=== PATIENT | male | born 1965 | race Caucasian/White ===

== ENCOUNTER → 2016-11-09 | Outpatient (CLI) | payer BC | END | disposition home or self-care (01) | LOC: LABWHC1 10:39 | PROVIDERS: ATTEND Internal Medicine Endocrinology, Diabetes & Metabolism | DX: E04.2 Nontoxic multinodular goiter (principal) | CPT/HCPCS: 36415; 84439; 84443 ==

== ENCOUNTER → 2016-12-06 | Outpatient (CLI) | payer BC ==
[2016-12-06 09:01] LABS: Blood Urea Nitrogen 16 mg/dL (9-20); Non-African American GFR(MDRD) >60 (>60 ml/min/1.73 sqM)
== END | disposition home or self-care (01) ==
LOC: LABWHC1 07:12
PROVIDERS: ATTEND Otolaryngology Plastic Surgery within the Head & Neck
DX: Z01.812 Encounter for preprocedural laboratory examination (principal)
CPT/HCPCS: 36415; 82565; 84520

== ENCOUNTER → 2016-12-07 | Outpatient (CLI) | payer BC ==
--- NOTE | 2016-12-07 07:56 | CT ---
EXAMINATION TYPE: CT soft tissue neck wo con DATE OF EXAM: 12/07/2016 COMPARISON: NONE HISTORY: Nontoxic multinodular goiter CT DLP: 423.[address] of the neck was performed from the skull base through the lung apices. The lack of cont rast limits evaluation. AIRWAY: The supraglottic, glottic, and subglottic portions of the airway appear patent and free of mass. SALIVARY GLANDS: The submandibular and parotid glands are free of mass or inflammatory process. THYROID GLAND: There is nodular enlargement of the right thyroid lobe which measures 5.7 cm in cranio caudal dimension by 3.3 cm. Multiple hypoattenuating nodules are seen the largest of which is noted w ithin the upper pole and measures approximately 2.8 cm. There is mild mass effect upon the trachea wi th minimal deviation from right to left. The left thyroid lobe appears to be mildly enlarged and elian ures 4.9 x 1.7 cm. No distinct nodule is seen with certainty. LYMPH NODES: No adenopathy seen greater than 1cm. LUNG APICES: No nodule or mass is seen. OTHER: Vascular structures are patent. No significant degenerative change of the cervical spine. N o abscess seen. Mucous retention cyst within the maxillary sinuses. IMPRESSION: 1. Thyroidomegaly right lobe greater than left with multiple right-sided hypoattenuating nodules iden tified.
== END | disposition home or self-care (01) ==
LOC: RADCTMAIN 07:27
PROVIDERS: ATTEND Otolaryngology Plastic Surgery within the Head & Neck
DX: E04.2 Nontoxic multinodular goiter (principal)
CPT/HCPCS: 70490

== ENCOUNTER → 2017-05-03 | Outpatient (CLI) | payer BC ==
[2017-05-03 08:50] LABS: T4, Free (Free Thyroxine) 0.93 ng/dL (0.78-2.19)
== END | disposition home or self-care (01) ==
LOC: LABWHC1 07:18
PROVIDERS: ATTEND Internal Medicine Endocrinology, Diabetes & Metabolism
DX: E04.2 Nontoxic multinodular goiter (principal); E04.1 Nontoxic single thyroid nodule
CPT/HCPCS: 36415; 84439; 84443

== ENCOUNTER → 2017-06-23 | Outpatient (CLI) | payer BC ==
[2017-06-23 08:43] LABS: T4, Free (Free Thyroxine) 1.12 ng/dL (0.78-2.19)
== END | disposition home or self-care (01) ==
LOC: LABWHC1 07:06
PROVIDERS: ATTEND Internal Medicine Endocrinology, Diabetes & Metabolism
DX: E04.2 Nontoxic multinodular goiter (principal)
CPT/HCPCS: 36415; 84439; 84443

== ENCOUNTER → 2018-03-26 | Outpatient (CLI) | payer BC ==
--- NOTE | 2018-03-26 08:59 | US ---
EXAMINATION TYPE: US thyroid st tissue head/neck DATE OF EXAM: 03/26/2018 COMPARISON: 02/19/2016 thyroid ultrasound CLINICAL HISTORY: E04.2 nontoxic multinodular goiter. follow up exam, right thyroidectomy GLAND SIZE: Right Lobe: Surgically absent cm Left Lobe: 5.5 x 2.0 x 2.3 cm Overall Parenchyma: heterogeneous Isthmus Thickness: 0.5 cm NODULES RIGHT: # of nodules measured on right: surgically absent LEFT: # of nodules measured on left: 1 1. 1.6 X 1.3 x 1.6 cm complex solid nodule at the mid pole with well-defined margins. This nodule is wider than tall and shows intranodular vascularity. Prior size: 1.4 x 1.0 x 1.4 cm ISTHMUS: # of nodules measured in the isthmus: 0 Bilateral neck scanned, no evidence of lymphadenopathy. IMPRESSION: Minimal interval growth of the complex left thyroid nodule in comparison to exam of 2016. Continued s urveillance is advised. If continued interval growth is seen fine-needle aspiration would be recommen ded. Surgical absence of the right thyroid gland.
[2018-03-26 09:30] LABS: T4, Free (Free Thyroxine) 0.93 ng/dL (0.78-2.19)
== END | disposition home or self-care (01) ==
LOC: RADUSWWP 07:58
PROVIDERS: ATTEND Internal Medicine Endocrinology, Diabetes & Metabolism
DX: E04.1 Nontoxic single thyroid nodule (principal); E89.0 Postprocedural hypothyroidism
CPT/HCPCS: 76536; 84439; 84443

== ENCOUNTER 2018-08-31 22:36 | Inpatient (IN) | payer BC ==
--- NOTE | 2018-08-31 22:48 | ED ---
Chest Pain HPI - General Chief Complaint: Chest Pain Stated Complaint: Chest pain Time Seen by Provider: 08/31/18 22:48 Source: patient Mode of arrival: wheelchair Limitations: no limitations - History of Present Illness Initial Comments: Celi 52-year-old gentleman with past medical history of hypertension who presents to the emergency department today for evaluation of chest pain. Patient reports that this evening he was mowing his lawn when he began to feel a pressure-like sensation in his chest. Patient describes it as a discomfort similar to a brain freeze from drinking too much [place] however it occurred in his chest not his head. Patient reports that this discomfort persisted for nearly an hour which prompted him to come to the emergency department for evaluation. Patient denies any cardiac history, he did undergo cardiac testing prior to his thyroidectomy in 2012 and had a stress test in 2017. Patient reports he previously was diagnosed with hypertension but has been able to get off medications. He is not certain if he has high cholesterol he is not currently on any medications for this. - Related Data Home Medications Medication Instructions Recorded Confirmed Aspirin EC [Ecotrin Low Dose] 81 mg PO HS 08/31/18 08/31/18 Levothyroxine Sodium [Synthroid] 50 mcg PO DAILY 08/31/18 08/31/18 Allergies Allergy/AdvReac Type Severity Reaction Status Date / Time Penicillins Allergy Unknown Verified 08/31/18 22:49 Childhood Review of Systems ROS Statement: Those systems with pertinent positive or pertinent negative responses have been documented in the HPI. ROS Other: All systems not noted in ROS Statement are negative. EKG Findings - EKG Comments: EKG Findings:: EKG was obtained due to the complaint of chest pain. EKG obtained at 2248 rate is 57 rhythm is sinus with a right bundle branch block. MS 172, QRS 150, QTC 418. There are no acute ST elevations or depressions there is no evidence of acute ischemia or infarction. There is no previous EKG for comparison. Past Medical History Past Medical History: Hypertension, Skin Disorder Additional Past Medical History / Comment(s): OFF HTN RX IN 2012, AFTER 2 YEARS OF RX. HAS RASH ON TRUNK. HAS MINOR COLD OR ALLERGIES CURRENTLY. History of Any Multi-Drug Resistant Organisms: None Reported Past Surgical History: No Surgical Hx Reported Additional Past Surgical History / Comment(s): thyroidectomy Past Anesthesia/Blood Transfusion Reactions: No Reported Reaction Past Psychological History: No Psychological Hx Reported Smoking Status: Never smoker - Past Family History Mother Family Medical History: No Reported History General Exam - General Exam Comments Initial Comments: Physical Exam GENERAL: Patient is well-developed and well-nourished. Patient is nontoxic and well- hydrated and is in no distress. HENT: Normocephalic, Atraumatic. EYES: PERRL, EOMI PULMONARY: Unlabored respirations. No audible rales rhonchi or wheezing was noted. CARDIOVASCULAR: There is a regular rate and rhythm without any murmurs gallops or rubs. ABDOMEN: Soft and nontender with normal bowel sounds. SKIN: Skin is clear with no lesions or rashes and otherwise unremarkable. : Deferred NEUROLOGIC: Patient is alert and oriented x3. Moving all extremities spontaneously MUSCULOSKELETAL: Normal extremities with adequate strength and full range of motion. No lower extremity swelling or edema. No calf tenderness. PSYCHIATRIC: Normal psychiatric evaluation. Limitations: no limitations Limitations: no limitations Course Vital Signs 08/31/18 22:39 Temperature 98.4 F Pulse Rate 58 L Respiratory 20 Rate Blood Pressure 202/103 O2 Sat by Pulse 98 Oximetry Chest Pain MDM - MDM The patient was seen and evaluated history is obtained from the patient 52-year-old gentleman with history of hypertension presenting with chest pain and hypertension him a chest pain is concerning for cardiac etiology as it occurred with exertion EKG was obtained, EKG with right bundle branch block, sinus bradycardia there is no previous EKG for comparison however patient states he's been told that he has a right bundle branch block in the past HEART score - 5 - highly suspicious, age, risk factors - HTN, Obesity, Family History Cardiac workup was obtained X-rays no acute findings Labs are unremarkable initial troponin of 0.017 however given that I feel the patient is high risk I will place him on heparin and plan to admit for further evaluation by cardiology. Patient at bedside are agreeable to this plan. patient care discussed with Dr. Mosley who agrees with plan for admission, serial cardiac enzymes and evaluation by cardiology. Critical Care Time Critical Care Time: Yes Total Critical Care Time: 30 Disposition Clinical Impression: Chest pain, HTN (hypertension), Obesity (BMI 30.0-34.9) Disposition: ADMITTED IP TO THIS HOSP Condition: Stable Is patient prescribed a controlled substance at d/c from ED?: No
[2018-08-31] MEDS ORDERED: NITROGLYCERIN SL TABS 0.4 MG TAB SUBLINGUAL PRN (22:51)
[2018-08-31] MEDS ORDERED: ASPIRIN 81 MG PO STA (22:51)
[2018-08-31 23:05] LABS: Basophils # (A) 0.1 k/uL (0-0.2); Basophils % (A) 1 %; Eosinophils # (A) 0.3 k/uL (0-0.7); Eosinophils % (A) 3 %; HCT 44.5 % (39.0-53.0); HGB 14.8 gm/dL (13.0-17.5); Lymphocytes # (A) 2.7 k/uL (1.0-4.8); Lymphocytes % (A) 28 %; MCH 29.3 pg (25.0-35.0); MCHC 33.2 g/dL (31.0-37.0); MCV 88.2 fL (80.0-100.0); Mean Platelet Volume 7.3; Monocytes # (A) 0.4 k/uL (0-1.0); Monocytes % (A) 5 %; Neutrophils % (A) 62 %; Platelet Count 299 k/uL (150-450); RBC 5.04 m/uL (4.30-5.90); RDW 12.7 % (11.5-15.5); WBC 9.8 k/uL (3.8-10.6)
[2018-08-31 23:11] LABS: Albumin 4.7 g/dL (3.5-5.0); Calcium 9.6 mg/dL (8.4-10.2); Total Bilirubin 0.3 mg/dL (0.2-1.3)
[2018-08-31 23:14] LABS: INR 0.9 (<1.2); Partial Thromboplastin Time 26.4 sec (22.0-30.0)
--- NOTE | 2018-08-31 23:14 | XR ---
EXAM: XR Chest, 2 Views CLINICAL HISTORY: ITS.REASON XR Reason: Chest Pain TECHNIQUE: Frontal and lateral views of the chest. COMPARISON: No relevant prior studies available. FINDINGS: Lungs: Unremarkable. No consolidation. Pleural space: Unremarkable. No pneumothorax. Heart: No suspicious enlargement. Mediastinum: Unremarkable. Bones/joints: No acute fracture. IMPRESSION: No acute findings.
[2018-08-31] MEDS ORDERED: HEPARIN SODIUM,PORCINE 5,000 UNIT/ML 1 ML VIAL IV PRN (23:36)
[2018-08-31] MEDS ORDERED: HEPARIN SODIUM,PORCINE 5,000 UNIT/ML 1 ML VIAL IV ONE (23:36)
[2018-08-31] MEDS ORDERED: MORPHINE SULFATE 4 MG/ML SYRINGE IV PRN (23:37)
[2018-09-01] MEDS: HEPARIN SOD,PORK IN 0.45% NACL 25,000 UNIT in 0.45% NACL 1 250ML.BAG IV SCH ×2 (00:05→19:53)
[2018-09-01 00:19] LABS: Basophils % (A) 0 %; Eosinophils # (A) 0.2 k/uL (0-0.7); Eosinophils % (A) 2 %; HCT 41.7 % (39.0-53.0); HGB 13.8 gm/dL (13.0-17.5); Lymphocytes % (A) 20 %; MCH 28.8 pg (25.0-35.0); MCHC 33.1 g/dL (31.0-37.0); MCV 87.1 fL (80.0-100.0); Mean Platelet Volume 7.2; Monocytes # (A) 0.4 k/uL (0-1.0); Monocytes % (A) 4 %; Neutrophils # (A) 7.1 k/uL (1.3-7.7); Neutrophils % (A) 72 %; Platelet Count 279 k/uL (150-450); RBC 4.79 m/uL (4.30-5.90); RDW 12.8 % (11.5-15.5); WBC 9.8 k/uL (3.8-10.6)
[2018-09-01 00:21] LABS: Prothrombin Time 10.4 sec (9.0-12.0)
[2018-09-01 06:21] LABS: Basophils # (A) 0.1 k/uL (0-0.2); Basophils % (A) 1 %; Eosinophils # (A) 0.2 k/uL (0-0.7); Eosinophils % (A) 2 %; HCT 42.3 % (39.0-53.0); HGB 13.8 gm/dL (13.0-17.5); Lymphocytes # (A) 2.5 k/uL (1.0-4.8); Lymphocytes % (A) 26 %; MCH 28.7 pg (25.0-35.0); MCHC 32.7 g/dL (31.0-37.0); MCV 87.6 fL (80.0-100.0); Monocytes # (A) 0.4 k/uL (0-1.0); Monocytes % (A) 4 %; Neutrophils # (A) 6.1 k/uL (1.3-7.7); Neutrophils % (A) 65 %; Platelet Count 273 k/uL (150-450); RBC 4.83 m/uL (4.30-5.90); WBC 9.4 k/uL (3.8-10.6)
[2018-09-01 06:28] LABS: Cholesterol 152 mg/dL (<200); HDL Cholesterol 46 mg/dL (40-60); LDL Cholesterol,Calculated 92 mg/dL (0-99); Triglycerides 68 mg/dL (<150)
[2018-09-01] MEDS: ASPIRIN 325 MG TAB PO SCH (09:26)
[2018-09-01] MEDS ORDERED: LEVOTHYROXINE 50 MCG TAB PO STA (09:47)
--- NOTE | 2018-09-01 10:05 | P.CRDCN ---
History of Present Illness Consult date: 09/01/18 Chief complaint: Chest pain History of present illness: This is a pleasant 52-year-old gentleman with no past medical history of diabetes or hypertension or dyslipidemia nor history of smoking nor family history of coronary artery disease who presented to the emergency room complaining of chest discomfort. He was in his usual state of health yesterday when he was mowing the lawn and started experiencing chest discomfort. He noticed that every time he does one pass of mowing the lawn he started experiencing chest discomfort then he stopped and the discomfort will go away. He did that multiple times but with the last run the chest discomfort did not go away and he decided to come to the emergency room. He described the discomfort as "uncomfortable feeling" in the chest. No radiation to the arm or neck or shoulders, no associated symptoms of shortness of breath, sweating, dizziness, or syncope, nausea, or vomiting. The EKG showed sinus rhythm with RBBB with about [address] segment depression inferiorly. The cardiac enzymes came in abnormal indicating acute non-ST patient myocardial infarction. 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 He continues to be chest pain-free throughout his stay in the hospital. Currently the patient is on heparin IV. Past Medical History Past Medical History: Hypertension, Skin Disorder Additional Past Medical History / Comment(s): OFF HTN RX IN 2012, AFTER 2 YEARS OF RX. HAS RASH ON TRUNK. HAS MINOR COLD OR ALLERGIES CURRENTLY. History of Any Multi-Drug Resistant Organisms: None Reported Past Surgical History: No Surgical Hx Reported Additional Past Surgical History / Comment(s): thyroidectomy Past Anesthesia/Blood Transfusion Reactions: No Reported Reaction Past Psychological History: No Psychological Hx Reported Smoking Status: Never smoker - Past Family History Mother Family Medical History: No Reported History Medications and Allergies Home Medications Medication Instructions Recorded Confirmed Type Aspirin EC [Ecotrin Low Dose] 81 mg PO HS 08/31/18 08/31/18 History Levothyroxine Sodium [Synthroid] 50 mcg PO DAILY 08/31/18 08/31/18 History Allergies Allergy/AdvReac Type Severity Reaction Status Date / Time Penicillins Allergy Unknown Verified 08/31/18 22:49 Childhood Physical Exam Vitals: Vital Signs Temp Pulse Resp BP Pulse Ox 05/11/19 09:00 56 L 16 129/84 97 09/01/18 08:00 48 L 16 131/84 95 09/01/18 07:00 59 L 16 138/89 97 09/01/18 06:00 87 16 138/89 100 09/01/18 04:40 52 L 09/01/18 04:00 51 L 17 148/86 09/01/18 03:10 61 17 148/86 09/01/18 02:40 49 L 16 98 09/01/18 02:30 48 L 09/01/18 02:20 63 09/01/18 02:15 60 08/31/18 22:39 98.4 F 58 L 20 202/103 98 Intake and Output 08/31/18 09/01/18 09/01/18 22:59 06:59 14:59 Intake Total 66.744 Balance 66.744 Intake: Intake, IV Titration 66.744 Amount Heparin Sod,Pork in 0.45% 66.744 NaCl 25,000 unit In 0.45 % NaCl 1 250ml.bag @ 9 UNITS/KG/HR 9.185 mls/hr IV .Q24H [facility] Rx#: [id number] Other: Weight 102.058 kg - Constitutional General appearance: no acute distress - Respiratory Respiratory: bilateral: CTA - Cardiovascular Rhythm: regular Heart sounds: normal: S1, S2 Results 09/01/18 05:54 08/31/18 22:52 Cardiac Enzymes 08/31/18 08/31/18 08/31/18 Range/Units 22:52 22:52 23:57 AST 16 L (17-59) U/L Troponin I 0.017 0.071 H* (0.000-0.034) ng/mL 09/01/18 Range/Units 05:54 AST (17-59) U/L Troponin I 1.030 H* (0.000-0.034) ng/mL Coagulation 08/31/18 08/31/18 09/01/18 Range/Units 22:52 23:57 05:54 PT 10.0 10.4 (9.0-12.0) sec APTT 26.4 27.0 31.4 H (22.0-30.0) sec Lipids 09/01/18 Range/Units 05:54 Triglycerides 68 (<150) mg/dL Cholesterol 152 (<200) mg/dL HDL Cholesterol 46 (40-60) mg/dL CBC 08/31/18 08/31/18 09/01/18 Range/Units 22:52 23:57 05:54 WBC 9.8 9.8 9.4 (3.8-10.6) k/uL RBC 5.04 4.79 4.83 (4.30-5.90) m/uL Hgb 14.8 13.8 13.8 (13.0-17.5) gm/dL Hct 44.5 41.7 42.3 (39.0-53.0) % Plt Count 299 279 273 (150-450) k/uL Comprehensive Metabolic Panel 08/31/18 Range/Units 22:52 Sodium 143 (137-145) mmol/L Potassium 5.0 (3.5-5.1) mmol/L Chloride 106 (98-107) mmol/L Carbon Dioxide 28 (22-30) mmol/L BUN 21 H (9-20) mg/dL Creatinine 1.51 H (0.66-1.25) mg/dL Glucose 93 (74-99) mg/dL Calcium 9.6 (8.4-10.2) mg/dL AST 16 L (17-59) U/L ALT 24 (21-72) U/L Alkaline Phosphatase 84 (38-126) U/L Total Protein 8.0 (6.3-8.2) g/dL Albumin 4.7 (3.5-5.0) g/dL Current Medications Generic Name Dose Route Start Last Admin Trade Name Deb PRN Reason Stop Dose Admin Aspirin 325 mg 09/01/18 09:00 09/01/18 09:26 Aspirin PO 325 mg DAILY [facility] Administration Heparin Sodium (Porcine) 0 unit 08/31/18 23:36 09/01/18 07:22 Heparin IV 4,000 unit PER PROTOCOL PRN Administration Low PTT Protocol Heparin Sodium/Sodium Chloride 250 mls @ 9.185 mls/hr 08/31/18 23:45 09/01/18 07:21 25,000 unit/ Sodium Chloride IV 12 units/kg/hr .Q24H [facility] 12.247 mls/hr Titration Protocol 9 UNITS/KG/HR Morphine Sulfate 4 mg 08/31/18 23:37 Morphine Sulfate (Inj) IV Q5M PRN Chest Pain Nitroglycerin 0.4 mg 08/31/18 22:51 Nitrostat SUBLINGUAL Q10M PRN Chest Pain Intake and Output 08/31/18 09/01/18 09/01/18 22:59 06:59 14:59 Intake Total 66.744 Balance 66.744 Intake: Intake, IV Titration 66.744 Amount Heparin Sod,Pork in 0.45% 66.744 NaCl 25,000 unit In 0.45 % NaCl 1 250ml.bag @ 9 UNITS/KG/HR 9.185 mls/hr IV .Q24H [facility] Rx#: [id number] Other: Weight 102.058 kg 09/01/18 05:54 08/31/18 22:52 Assessment and Plan Assessment: Assessment #1 acute non-ST patient myocardial infarction Plan #1 I did advise proceeding with coronary angiogram #2 continue aspirin as well as heparin IV #3 add metoprolol #4 add statin #5 obtain an echocardiogram was Doppler #6 follow-up with the patient
--- NOTE | 2018-09-01 10:22 | P.HPIM ---
History of Present Illness H&P Date: 09/01/18 Chief Complaint: Chest pain Alex Gurrola is a 52-year-old male patient of Dr. Clau Ward who presented to [facility] emergency room with a chief complaint of chest pain, patient states that yesterday he was mowing the lawn and he started having a feeling of discomfort in the chest that he describes like having a brain freeze after drinking icy drinks but did just happened in the chest. Patient stopped mowing the lawn and his discomfort improved he resumed working and he started having discomfort again after that he was watching a movie with his and he continued to have chest discomfort and he decided to come to emergency room for evaluation, he stated that his chest pain resolved while in the emergency room. Patient stated that he had a cardiac catheterization in 2017 at [facility] which was reported to him as negative subsequently he had a thyroidectomy at [facility] in February 2017. He stated that he had a history of hypertension he was taking medications for that but he was able to get off medications with some lifestyle changes. He states that his last blood test was 1 year ago and he was never told that he has high cholesterol or high blood sugar. He states that he never smoked, he works as a insurance agency sales manager at the [employer]. He denies any other past medical history or surgical history. His father had heart attacks in his seventies. Patient was evaluated in the emergency room, his EKG revealed evidence of sinus bradycardia was right bundle branch block, first troponin was 0.017, second troponin 0.071 patient was started on IV heparin and cardiology consultation was requested. Past Medical History Past Medical History: Hypertension, Skin Disorder Additional Past Medical History / Comment(s): OFF HTN RX IN 2012, AFTER 2 YEARS OF RX. HAS RASH ON TRUNK. HAS MINOR COLD OR ALLERGIES CURRENTLY. History of Any Multi-Drug Resistant Organisms: None Reported Past Surgical History: No Surgical Hx Reported Additional Past Surgical History / Comment(s): thyroidectomy Past Anesthesia/Blood Transfusion Reactions: No Reported Reaction Past Psychological History: No Psychological Hx Reported Smoking Status: Never smoker - Past Family History Mother Family Medical History: No Reported History Medications and Allergies Home Medications Medication Instructions Recorded Confirmed Type Aspirin EC [Ecotrin Low Dose] 81 mg PO HS 08/31/18 08/31/18 History Levothyroxine Sodium [Synthroid] 50 mcg PO DAILY 08/31/18 08/31/18 History Allergies Allergy/AdvReac Type Severity Reaction Status Date / Time Penicillins Allergy Unknown Verified 08/31/18 22:49 Childhood Physical Exam Vitals: Vital Signs Temp Pulse Resp BP Pulse Ox 09/01/18 09:00 56 L 16 129/84 97 09/01/18 08:00 48 L 16 131/84 95 09/01/18 07:00 59 L 16 138/89 97 09/01/18 06:00 87 16 138/89 100 09/01/18 04:40 52 L 09/01/18 04:00 51 L 17 148/86 09/01/18 03:10 61 17 148/86 09/01/18 02:40 49 L 16 98 09/01/18 02:30 48 L 09/01/18 02:20 63 09/01/18 02:15 60 08/31/18 22:39 98.4 F 58 L 20 202/103 98 Intake and Output 08/31/18 09/01/18 09/01/18 22:59 06:59 14:59 Intake Total 66.744 Balance 66.744 Intake: Intake, IV Titration 66.744 Amount Heparin Sod,Pork in 0.45% 66.744 NaCl 25,000 unit In 0.45 % NaCl 1 250ml.bag @ 9 UNITS/KG/HR 9.185 mls/hr IV .Q24H [facility] Rx#: [id number] Other: Weight 102.058 kg In general patient is alert and oriented 3 in no apparent distress HEENT head normocephalic and atraumatic Neck is supple no JVD no goiter no lymphadenopathy Chest exam is clear to auscultation no crackles no wheezing Cardiac exam reveals regular heart sounds S1 and S2 no gallops no murmurs Abdomen is soft nontender no organomegaly with normal bowel sounds Extremity exam reveals no edema no cyanosis or clubbing Neurological examination reveals no gross focal deficit Results CBC & Chem 7: 09/01/18 05:54 08/31/18 22:52 Labs: Abnormal Lab Results - Last 24 Hours (Table) 08/31/18 08/31/18 09/01/18 Range/Units 22:52 23:57 05:54 APTT 31.4 H (22.0-30.0) sec BUN 21 H (9-20) mg/dL Creatinine 1.51 H (0.66-1.25) mg/dL AST 16 L (17-59) U/L Troponin I 0.071 H* (0.000-0.034) ng/mL 09/01/18 Range/Units 05:54 APTT (22.0-30.0) sec BUN (9-20) mg/dL Creatinine (0.66-1.25) mg/dL AST (17-59) U/L Troponin I 1.030 H* (0.000-0.034) ng/mL Assessment and Plan Plan: #1 episode of chest pain with increased troponin level. And abnormal EKG showing sinus bradycardia was right bundle branch block #2 underlying history of hypothyroidism, status post thyroid surgery. #3 previous history of hypertension, currently blood pressure is well-controlled on no medications At this time patient is admitted to telemetry floor, case discussed with cardiology, plans are for cardiac catheterization today Continue IV heparin at this time, patient was also started on aspirin and Lipitor Will follow closely during this admission
[2018-09-01] MEDS ORDERED: HEPARIN SODIUM 1,000 UN/ML (10ML VL) ONE (12:59)
[2018-09-01] MEDS ORDERED: LIDOCAINE 1% INJ 10MG/ML (20 ML MDV) ONE (12:59)
[2018-09-01] MEDS ORDERED: VERAPAMIL 2.5 MG/ML 2 ML AMP ONE (13:02)
[2018-09-01] MEDS ORDERED: IV FLUID CONTINUATION 1,000 ML IV ONE (13:03)
[2018-09-01] MEDS ORDERED: MIDAZOLAM (PF) 2 MG/2 ML VIAL IV ONE ×2 (13:17→13:32)
[2018-09-01] MEDS ORDERED: LIDOCAINE 1% INJ 10MG/ML (20 ML MDV) SQ ONE (13:17)
[2018-09-01] MEDS: VERAPAMIL SYRINGE (5 MG/10 ML) INTRAARTER ONE ×2 (13:18→13:47)
[2018-09-01] MEDS ORDERED: PRASUGREL 10 MG TAB ONE (13:29)
[2018-09-01] MEDS ORDERED: BIVALIRUDIN BOLUS 250 MG/50 ML IV ONE (13:30)
[2018-09-01] MEDS ORDERED: BIVALIRUDIN 250 MG in SODIUM CHLORIDE 0.9% 50 ML IV ONE (13:31)
[2018-09-01] MEDS ORDERED: PRASUGREL 10 MG TAB PO ONE (13:33)
[2018-09-01] MEDS ORDERED: IOPAMIDOL-370 125ML BTL INJ ONE (13:45)
[2018-09-01] MEDS ORDERED: RX INFO: IV CONTRAST WAS GIVEN 1 EACH MISC MISCELLANE PRN (13:56)
[2018-09-01] MEDS ORDERED: NITROGLYCERIN SL TABS 0.4 MG TAB SUBLINGUAL PRN (13:56)
[2018-09-01] MEDS ORDERED: MAG HYDROX/AL HYDROX/SIMETH 30 ML CUP PO PRN (13:56)
[2018-09-01] MEDS ORDERED: ZOLPIDEM 5 MG TAB PO PRN (13:56)
[2018-09-01] MEDS ORDERED: ATROPINE SULFATE 0.1 MG/ML 10ML SYRINGE IV PRN (13:56)
[2018-09-01] MEDS ORDERED: SODIUM CHLORIDE 0.9% 1,000 ML IV SCH (14:00)
[2018-09-01] MEDS ORDERED: ATORVASTATIN 80 MG TAB PO SCH (21:00)
--- NOTE | 2018-09-01 21:34 | CC ---
CARDIAC CATHETERIZATION REPORT DATE OF SERVICE: September 01, 2018 PERFORMING PHYSICIAN: Jose Reyes MD, sales closer. PROCEDURE PERFORMED: 1. Selective right and left coronary angiogram. 2. Left heart catheterization. 3. Successful stenting of the proximal left anterior descending artery using a 4.0 x 18 mm Xience drug-eluting stent with reduction of stenosis from 99% to 0%. INDICATIONS: This is a 52-year-old gentleman who has no risk factors for CAD like diabetes, no hypertension or dyslipidemia nor significant history of smoking or family history of coronary artery disease, presented to the emergency room complaining of chest discomfort started yesterday while he was mowing the lawn. In the emergency room, the EKG showed sinus rhythm with a RBBB and ST changes inferiorly. He was ruled in for acute non ST elevation myocardial infarction. Because of that, a heart catheterization was advised. APPROACH: Right radial artery. COMPLICATION: None. LEVEL OF SEDATION: Moderate with sedation length of 32 minutes. PROCEDURE DESCRIPTION: After obtaining an informed consent, the patient was brought to the cardiac laundry laborer. The right radial artery was cannulated using micropuncture technique, the micropuncture wire passed easily then I placed a 6-Tamazight sheath in the right radial artery and subsequently I gave the patient 2 mg of verapamil IA. After that, I did selective right and left coronary angiogram using JR4 and JL3.5 diagnostic catheters. Left heart catheterization was performed using 5-Tamazight pigtail catheter. Subsequently, I did intervene on the LAD. Please see a separate paragraph for that. SELECTIVE CORONARY ANGIOGRAM: 1. The right coronary artery is a moderate caliber vessel and is a nondominant vessel and appeared to be angiographically normal. 2. The left main is angiographically normal. It bifurcates into left circumflex, ramus intermedius, and left anterior descending artery. 3. The left circumflex is a large caliber vessel. It is a dominant vessel. It is angiographically normal. In the midportion, gives rise into a medium-sized obtuse marginal branch and distally bifurcates into PDA and PLV branches both appeared to be angiographically normal. 4. The ramus intermedius is a large caliber vessel and seems to be angiographically normal. It bifurcates into 2 subbranches both appeared to be angiographically normal. 5. The LAD: The proximal LAD has a hazy lesion appeared to be in the range of 99.9%. The mid LAD and distal LAD appeared to be angiographically normal. The LAD in the midportion gives rise into a small diagonal branch which seems to be angiographically normal. HEMODYNAMICS: The left ventricular end-diastolic pressure was about 12-16 mmHg without significant gradient across the aortic valve. PCI OF THE LAD: Anticoagulation was initiated using Angiomax. Subsequently I did engage the left main using JL3.5 guide. A run-through wire was used to wire the left anterior descending artery. Subsequently, I did balloon angioplasty of the LAD using 2 3.5 x 12 mm balloon before I deployed 4.0 x 18 mm Xience drug-eluting stent where the stent was positioned under fluoroscopy guidance and deployed under its nominal pressure. The following angiogram showed good angiographic results with reduction of stenosis 99% to 0%. CONCLUSION: 1. Acute non ST elevation myocardial infarction. 2. Critical disease involving the proximal left anterior descending artery. 3. Successful stenting of the proximal LAD using the using 4.0 x 18 mm Xience DIVINA with an excellent angiographic results and reduction of stenosis from 99% to 0%. POSTPROCEDURE MANAGEMENT: 1. Dual anti-platelet therapy. 2. Risk factors modifications. 3. Follow up with the patient. MMODL / IJN: [id number] /
--- NOTE | 2018-09-01 21:34 | LTR ---
DATE OF SERVICE: September 01, 2018 Dr. Clau Ward Dear Dr. Ward: Mr. Alex Gurrola presented to [facility] with chest discomfort and was diagnosed with acute non ST elevation myocardial infarction. He underwent a heart catheterization and was found to have critical disease of the LAD in the proximal portion, which was stented with good angiographic results. Thank you for allowing us to participate in his care. Sincerely, MMANDREIA / NICOLEN: [id number] /
[2018-09-02 06:58] LABS: Basophils # (A) 0.1 k/uL (0-0.2); Basophils % (A) 1 %; Eosinophils # (A) 0.2 k/uL (0-0.7); Eosinophils % (A) 2 %; HCT 46.1 % (39.0-53.0); Lymphocytes # (A) 1.7 k/uL (1.0-4.8); Lymphocytes % (A) 18 %; MCH 28.5 pg (25.0-35.0); MCHC 32.5 g/dL (31.0-37.0); MCV 87.6 fL (80.0-100.0); Mean Platelet Volume 7.1; Monocytes # (A) 0.5 k/uL (0-1.0); Monocytes % (A) 5 %; Neutrophils # (A) 7.2 k/uL (1.3-7.7); Neutrophils % (A) 73 %; Platelet Count 259 k/uL (150-450); RBC 5.26 m/uL (4.30-5.90); RDW 13.1 % (11.5-15.5); WBC 9.8 k/uL (3.8-10.6)
--- NOTE | 2018-09-02 07:52 | ECHOF ---
Referral Reason:nstemi MEASUREMENTS -------- HEIGHT: 180.3 cm WEIGHT: 102.1 kg BP: RVIDd: 2.6 cm (< 3.3) IVSd: 1.2 cm (0.6 - 1.1) LVIDd: 4.9 cm (3.9 - 5.3) LVPWd: 1.3 cm (0.6 - 1.1) IVSs: 1.6 cm LVIDs: 3.7 cm LVPWs: 1.6 cm LAESV Index (A-L): 31.35 ml/m Ao Diam: 3.4 cm (2.0 - 3.7) AV Cusp: 2.2 cm (1.5 - 2.6) LA Diam: 3.9 cm (2.7 - 3.8) MV EXCURSION: 14.577 mm (> 18.000) MV EF SLOPE: 99 mm/s (70 - 150) EPSS: 0.7 cm RAP: 5.00 mmHg RVSP: 13.59 mmHg FINDINGS -------- Sinus rhythm. This was a technically good study. The left ventricular size is normal. There is mild concentric left ventricular hypertrophy. Overa ll left ventricular systolic function is mildly impaired with, an EF between 45 - 50 %. Apical infe rior LV wall motion is hypokinetic. Apical septum LV wall motion is hypokinetic. The right ventricle is normal in size. LA is midly dilated 29-33ml/m2. The right atrial size is normal. Interatrial and interventricular septum intact. The aortic valve is trileaflet and appears structurally normal. The mitral valve leaflets are mildly thickened. Mild mitral annular calcification present. Mild m itral regurgitation is present. Mild tricuspid regurgitation present. The right ventricular systolic pressure, as measured by Doppl er, is 13.59mmHg. Pulmonic valve appears structurally normal. The aortic root size is normal. Normal inferior vena cava with normal inspiratory collapse consistent with estimated right atrial pre ssure of 5 mmHg. There is no pericardial effusion. CONCLUSIONS -------- 1. Sinus rhythm. 2. This was a technically good study. 3. The left ventricular size is normal. 4. There is mild concentric left ventricular hypertrophy. 5. Overall left ventricular systolic function is mildly impaired with, an EF between 45 - 50 %. 6. Apical inferior LV wall motion is hypokinetic. 7. Apical septum LV wall motion is hypokinetic. 8. The right ventricle is normal in size. 9. LA is midly dilated 29-33ml/m2. 10. The right atrial size is normal. 11. Interatrial and interventricular septum intact. 12. The aortic valve is trileaflet and appears structurally normal. 13. The mitral valve leaflets are mildly thickened. 14. Mild mitral annular calcification present. 15. Mild mitral regurgitation is present. 16. Mild tricuspid regurgitation present. 17. The right ventricular systolic pressure, as measured by Doppler, is 13.59mmHg. 18. Pulmonic valve appears structurally normal. 19. The aortic root size is normal. 20. Normal inferior vena cava with normal inspiratory collapse consistent with estimated right atrial pressure of 5 mmHg. 21. There is no pericardial effusion. HUMAN SERVICES SUPERVISOR: Dorinda Vanessa RDCS
[2018-09-02 08:46] VITALS: TEMP 98.2
[2018-09-02] MEDS: ASPIRIN 325 MG TAB PO SCH (08:46)
[2018-09-02] MEDS ORDERED: LISINOPRIL 2.5 MG TAB PO SCH (09:00)
[2018-09-02] MEDS ORDERED: PRASUGREL 10 MG TAB PO SCH (09:00)
--- NOTE | 2018-09-02 10:55 | P.PN ---
Subjective Progress Note Date: 09/02/18 This is a pleasant 52-year-old gentleman with no past medical history of diabetes or hypertension or dyslipidemia nor history of smoking nor family history of coronary artery disease who presented to the emergency room complaining of chest discomfort. He was in his usual state of health yesterday when he was mowing the lawn and started experiencing chest discomfort. He noticed that every time he does one pass of mowing the lawn he started experiencing chest discomfort then he stopped and the discomfort will go away. He did that multiple times but with the last run the chest discomfort did not go away and he decided to come to the emergency room. He described the discomfort as "uncomfortable feeling" in the chest. No radiation to the arm or neck or shoulders, no associated symptoms of shortness of breath, sweating, dizziness, or syncope, nausea, or vomiting. The EKG showed sinus rhythm with RBBB with about [address] segment depression inferiorly. The cardiac enzymes came in abnormal indicating acute non-ST patient myocardial infarction. The patient stated that 2 years ago he was seen by a loading inspector out of the town and at that point he underwent a heart catheterization and that came in to be unremarkable according to what he is saying. He continues to be chest pain-free throughout his stay in the hospital. Currently the patient is on heparin IV. 09/02/2017 Patient seen and examined this morning, underwent stent placement of the LAD. Feels well this morning, denies any chest pain or difficulty in breathing. He's been up ambulating without any difficulty. Blood pressure 138/70 with a heart rate in the 60s, 98% on room air. White blood cell count 9.8 with a hemoglobin of 15, platelet 259. Creatinine 0.8. Objective - Vital Signs Vital signs: Vital Signs Temp 98.2 F 09/02/18 08:45 Pulse 62 09/02/18 08:45 Resp 18 09/02/18 08:45 BP 152/83 09/02/18 08:45 Pulse Ox 98 09/02/18 08:45 Intake & Output 09/01/18 09/02/18 09/02/18 18:59 06:59 18:59 Intake Total 201.744 700 250 Balance 201.744 700 250 Weight 104 kg Intake: IV 135 10 Invasive Line 1 10 Intake, IV Titration 66.744 Amount Heparin Sod,Pork in 0.45% 66.744 NaCl 25,000 unit In 0.45 % NaCl 1 250ml.bag @ 9 UNITS/KG/HR 9.185 mls/hr IV .Q24H [facility] Rx#: [id number] Oral 700 240 Other: Voiding Method Toilet Toilet - Exam PHYSICAL EXAMINATION: GENERAL: 52-year-old gentleman in no acute distress at the time of my examination HEENT: Head is atraumatic, normocephalic. Pupils equal, round. Sclera anicteric. Conjunctiva are clear. Mucous membranes of the mouth are moist. Neck is supple. There is no elevated jugular venous pressure.] bruit is heard. HEART EXAMINATION: Heart S1, S2 normal. No murmur or gallop heard. CHEST EXAMINATION: Lungs are clear to auscultation and precussion. No chest wall tenderness is noted on palpation or with deep breathing. ABDOMEN: Soft, nontender. Bowel sounds are heard. No organomegaly noted. EXTREMITIES: 2+ peripheral pulses with no evidence of peripheral edema and no calf tenderness noted. Right radial site clean and dry, good distal pulse. NEUROLOGIC patient is awake, alert and oriented 3 . . - Labs CBC & Chem 7: 09/02/18 06:11 09/02/18 06:11 Assessment and Plan Plan: Assessment and plan #1 acute non-ST elevation myocardial infarction, status post angioplasty and stenting of the LAD #2 hyperlipidemia Plan Patient may be able to be discharged home today from cardiology's perspective, we'll make a follow-up appointment in the office post discharge. DNP note has been reviewed, I agree with a documented findings and plan of care. Patient was seen and examined.
[2018-09-02 12:17] VITALS: BP 160/84; PULSE 54; RESP 16
--- NOTE | 2018-09-02 13:40 | P.DS ---
Providers Date of admission: 09/01/18 15:15 Expected date of discharge: 09/02/18 Attending physician: Yovanny Mosley Consults: 08/31/18 23:40 Consult Physician Urgent Consulting Provider: Ranjeet Potter Consult Reason/Comments: chest pain - high risk Do you want consulting provider notified?: Yes, Notify in am 09/01/18 13:56 Consult Physician Routine Consulting Provider: Ranjeet Potter Consult Reason/Comments: Post Interventional patient Do you want consulting provider notified?: Already Contacted Primary care physician: Clau Ward Hospital Course: Discharge Diagnosis: Acute non-ST segment elevated myocardial infarction Coronary artery disease status post stent to the LAD Hypertension Hypothyroidism Hospital Course: Issue is a 52-year-old male with a past medical history of hypertension who presented to the ER with complaints of chest discomfort and shortness of breath when mowing the lawn. In the ER he underwent an extensive evaluation. He was noted to be bradycardic with a right bundle branch block on EKG. His first troponin was normal at 0.017 and second troponin was elevated at 0.071. He was subsequently started on IV heparin. Is admitted for further monitoring. Cardiology was consulted. His troponin maxed at 1.03. He underwent an echocardiogram which showed a slightly depressed ejection fraction of 45-50%. He subsequently underwent cardiac catheterization on 09/01/18 which showed critical disease involving the proximal LAD. He underwent successful stenting of the LAD with a drug-eluting stent. He was started on aspirin and Effient. He was not started on metoprolol due to bradycardia throughout his hospital stay. He was also started on lisinopril and Lipitor. He was determined stable to discharge home. He was given instructions to continue monitoring his blood pressure home with a goal blood pressure of 120/80. He will make a list of his blood pressures and bring them to his next appointment. He'll follow up with Dr. Reyes in 1 week. We discussed limiting his activity to ensure he does not become tachycardic, diaphoretic, or short of breath. He will then start exercising again if he wishes to start running again. We also discussed dietary changes. 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 He'll follow-up with Dr. Ward in 2-3 days. Patient seen and examined at bedside. No chest pain, shortness of breath, nausea, or vomiting Vital signs reviewed and stable. General: non toxic, no distress, appears at stated age Derm: warm, dry Head: atraumatic, normocephalic, symmetric Eyes: EOMI, no lid lag, anicteric sclera Mouth: no lip lesion, mucus membranes moist Cardiovascular: S1S2 reg, no murmur, positive posterior tibial pulse bilateral, Lungs: CTA bilateral, no rhonchi, no rales , no accessory muscle use Abdominal: soft, nontender to palpation, no guarding, no appreciable organomeg tammy Ext: no gross muscle atrophy, no edema, no contractures Neuro: CN II-XI grossly intact, no focal neuro deficits Psych: Alert, oriented, appropriate affect A total of 37 minutes of time were spent preparing this complex discharge summary . Pertinent Studies: echocardiogram which showed a slightly depressed ejection fraction of 45-50%. Procedures: Cardiac catheterization on 09/01/18 stenting of the LAD with a drug-eluting stent. Patient Condition at Discharge: Stable Plan - Discharge Summary New Discharge Prescriptions: New Prasugrel [Effient] 10 mg PO DAILY #30 tab Atorvastatin [Lipitor] 80 mg PO HS #30 tab Nitroglycerin Sl Tabs [Nitrostat] 0.4 mg SUBLINGUAL Q10M PRN #25 tab PRN Reason: Chest Pain Lisinopril [Zestril] 5 mg PO DAILY #30 tab Continue Levothyroxine Sodium [Synthroid] 50 mcg PO DAILY Aspirin EC [Ecotrin Low Dose] 81 mg PO HS #30 tablet. Discharge Medication List Levothyroxine Sodium [Synthroid] 50 mcg PO DAILY 08/31/18 [History] Aspirin EC [Ecotrin Low Dose] 81 mg PO HS #30 tablet. 09/02/18 [Rx] Atorvastatin [Lipitor] 80 mg PO HS #30 tab 09/02/18 [Rx] Lisinopril [Zestril] 5 mg PO DAILY #30 tab 09/02/18 [Rx] Nitroglycerin Sl Tabs [Nitrostat] 0.4 mg SUBLINGUAL Q10M PRN #25 tab 09/02/18 [Rx] Prasugrel [Effient] 10 mg PO DAILY #30 tab 09/02/18 [Rx] Follow up Appointment(s)/Referral(s): Jose Reyes MD [STAFF PHYSICIAN] - 1 Week Clau Ward MD [Primary Care Provider] - 1-2 days Patient Instructions/Handouts: Heart Attack (DC), Heart Healthy Diet (DC), Chr onic Hypertension (DC) Activity/Diet/Wound Care/Special Instructions: heart healthy diet Activity as tolerated Limit activity if you become sweaty, your heart races or you become short of breath Blood pressure goal is 120/80, please check once daily and bring a long to your next appointment with Dr. Reyes. Discharge/Stand Alone Forms: Work/Release Restrictions Form, Work/School Release / Restrict
[2018-09-02 15:56] VITALS: BMI 31.1
[2018-09-03] MEDS ORDERED: LISINOPRIL 5 MG TAB PO SCH (09:00)
[2018-09-03] MEDS ORDERED: ASPIRIN 81 MG PO SCH (09:00)
== END 2018-09-02 15:12 | disposition home or self-care (01) | DRG 247 ==
LOC: EC 22:36 → 1SOBS 23:40 → 3SCARD 09-01 04:56 → OBSVTOIN 09-01 15:15
PROVIDERS: ADMIT Internal Medicine; ATTEND Internal Medicine
PROC: 027034Z Dilation of Coronary Artery, One Artery with Drug-eluting Intraluminal Device, Percutaneous Approach (ICD-10-PCS; principal; 2018-09-01 14:00)
DX: I21.4 Non-ST elevation (NSTEMI) myocardial infarction (principal); E66.9 Obesity, unspecified; Z68.31 Body mass index [BMI] 31.0-31.9, adult; E78.5 Hyperlipidemia, unspecified; E89.0 Postprocedural hypothyroidism; I10 Essential (primary) hypertension; I25.10 Atherosclerotic heart disease of native coronary artery without angina pectoris; I45.10 Unspecified right bundle-branch block; Z79.890 Hormone replacement therapy; R00.1 Bradycardia, unspecified; Z88.0 Allergy status to penicillin; I25.5 Ischemic cardiomyopathy
CPT/HCPCS: 36415; 71046; 80053; 80061; 82565; 83735; 84484; 85025; 85610; 85730; 93005; 93306; 93458; 94760; 96365; 96366; 96376; 99291; C1874

== ENCOUNTER → 2018-09-27 | Outpatient (CLI) | payer BC ==
[2018-09-28 03:53] LABS: T4, Free (Free Thyroxine) 1.3 ng/dL (0.80-1.80)
== END | disposition home or self-care (01) ==
LOC: LABWHC1 15:59
PROVIDERS: ATTEND Internal Medicine Endocrinology, Diabetes & Metabolism
DX: E04.2 Nontoxic multinodular goiter (principal)
CPT/HCPCS: 36415; 84439; 84443

== ENCOUNTER → 2018-11-09 | Outpatient (CLI) | payer BC | LOC: LABWHC1 07:05 | PROVIDERS: ATTEND Internal Medicine Interventional Cardiology | DX: E78.2 Mixed hyperlipidemia (principal) | CPT/HCPCS: 36415; 80061; 84450; 84460 ==

== ENCOUNTER → 2019-05-03 | Outpatient (CLI) | payer BC ==
[2019-05-03 10:24] LABS: Chol/HDL Ratio 2.31; LDL Cholesterol,Calculated 51.4 mg/dL (0.0-131.0); VLDL Calculation 12.6 mg/dL (5.00-40.00)
== END | disposition home or self-care (01) ==
LOC: LABWHC1 06:54
PROVIDERS: ATTEND Nurse Practitioner Adult Health
DX: E78.2 Mixed hyperlipidemia (principal)
CPT/HCPCS: 36415; 80061

== ENCOUNTER → 2020-01-10 | Outpatient (CLI) | payer BC ==
--- NOTE | 2020-01-11 12:11 | US ---
EXAMINATION TYPE: US thyroid st tissue head/neck DATE OF EXAM: 01/10/2020 COMPARISON: Thyroid ultrasound June 17, 2019 and older studies. CLINICAL HISTORY: E04.1 Thyroid nodule. thyroid nodules GLAND SIZE: Right Lobe: Surgically absent Left Lobe: 5.9 x 2.2 x 2.0 cm Overall Parenchyma: homogeneous Isthmus Thickness: .5 cm NODULES RIGHT: # of nodules measured on right: 0 LEFT: # of nodules measured on left: 1 1. 1.8 X 1.4 x 1.1 cm hypoechoic solid nodule at the mid pole with well-defined margins. This nodu le is wider than tall and shows intranodular vascularity. Prior size: 1.6 x 1.3 x 1.4 cm ISTHMUS: # of nodules measured in the isthmus: 0 Bilateral neck scanned, no evidence of lymphadenopathy. No suspicious recurrent tissue right thyroid fossa. Slightly heterogeneous and enlarged left thyroid lobe with stable isoechoic poorly marginated 1.8 cm solid nodule accounting for technical differences . IMPRESSION: As above. No new greater than 1 cm nodules are suspicious for recurrent right thyroid bed tissue.
== END | disposition home or self-care (01) ==
LOC: RADUSWWP 07:25
PROVIDERS: ATTEND Internal Medicine Endocrinology, Diabetes & Metabolism
DX: E04.1 Nontoxic single thyroid nodule (principal)
CPT/HCPCS: 76536; 84443

== ENCOUNTER → 2020-01-27 | Outpatient (CLI) | payer BC ==
--- NOTE | 2020-01-27 10:35 | US ---
EXAMINATION TYPE: US abdomen complete DATE OF EXAM: 01/27/2020 COMPARISON: NONE CLINICAL HISTORY: R10.84 GENERALIZED ABDOMINAL PAIN. generalized pain. EXAM MEASUREMENTS: Liver Length: 17.8 cm Gallbladder Wall: 0.2 cm CBD: 0.4 cm Spleen: 13.0 cm Right Kidney: 10.4 x 5.5 x 6.1 cm Left Kidney: 10.8 x 5.1 x 4.3 cm Pancreas: Limited by bowel gas Liver: wnl Gallbladder: wnl Evidence for sonographic Curry's sign: neg CBD: wnl Spleen: appears slightly enlarged Right Kidney: No hydronephrosis or masses seen Left Kidney: No hydronephrosis or masses seen Upper IVC: wnl Abd Aorta: Mid portion obscured by overlying bowel gas IMPRESSION: 1. Borderline splenomegaly.
== END | disposition home or self-care (01) ==
LOC: RADUSWWP 09:27
PROVIDERS: ATTEND Family Medicine
DX: R16.1 Splenomegaly, not elsewhere classified (principal)
CPT/HCPCS: 76700

== ENCOUNTER → 2020-09-04 | Outpatient (CLI) | payer BC ==
[2020-09-04 13:00] LABS: Chol/HDL Ratio 2.5; LDL Cholesterol,Calculated 48.2 mg/dL (0.0-131.0); VLDL Calculation 11.8 mg/dL (5.00-40.00)
== END | disposition home or self-care (01) ==
LOC: LABWHC1 07:06
PROVIDERS: ATTEND Internal Medicine Interventional Cardiology
DX: E78.2 Mixed hyperlipidemia (principal)
CPT/HCPCS: 36415; 80061; 84450; 84460

== ENCOUNTER → 2021-01-13 | Outpatient (CLI) | payer BC | END | disposition home or self-care (01) | LOC: LABWHC1 07:03 | PROVIDERS: ATTEND Internal Medicine Endocrinology, Diabetes & Metabolism | DX: E03.8 Other specified hypothyroidism (principal) | CPT/HCPCS: 36415; 84443 ==

== ENCOUNTER → 2021-01-18 | Outpatient (CLI) | payer BC ==
--- NOTE | 2021-01-18 15:53 | US ---
EXAMINATION TYPE: US thyroid st tissue head/neck DATE OF EXAM: 01/18/2021 COMPARISON: NONE CLINICAL HISTORY: E04.2 Nontoxic multinodular goiter. GLAND SIZE: Right Lobe: Surgically absent cm Left Lobe: 5.6 x 2.1 x 1.8 cm Overall Parenchyma: heterogeneous Isthmus Thickness: 0.4 cm NODULES RIGHT: # of nodules measured on right: 1 1. ? nodule in residual tissue vs small lymph node measuring 0.3 X 0.3 x 0.4 cm, mid, solid or almos t completely solid, anechoic nodule, which is wider than tall, with smooth margins, without echogenic foci. Not seen previously LEFT: # of nodules measured on left: 1. 1.5 X 1.5 x 1.8 cm, mid, solid or almost completely solid, isoechoic nodule, which is taller than wide, with ill-defined margins, without echogenic foci. TR 3 Prior size:1.8 X 1.4 x 1.1 cm ISTHMUS: # of nodules measured in the isthmus: 0 Bilateral neck scanned, no evidence of lymphadenopathy. IMPRESSION: Mildly suspicious nodule right lobe thyroid, continued monitoring is recommended 2017 ACR TI-RADS LEVEL: TR-RADS 3 - Mildly Suspicious: Follow if > 1.5 cm, FNA if > 2.5 cm *Highest TI-RADS level nodule reported
== END | disposition home or self-care (01) ==
LOC: RADUSWWP 13:26
PROVIDERS: ATTEND Internal Medicine Endocrinology, Diabetes & Metabolism
DX: E04.2 Nontoxic multinodular goiter (principal)
CPT/HCPCS: 76536

== ENCOUNTER → 2021-02-19 | Outpatient (CLI) | payer BC ==
--- NOTE | 2021-02-19 10:25 | US ---
EXAMINATION TYPE: US abdomen complete DATE OF EXAM: 02/19/2021 COMPARISON: NONE CLINICAL HISTORY: R16.1 SPLENOMEGALY. EXAM MEASUREMENTS: Liver Length: 16.7 cm. Normal less than 15.5 cm. Gallbladder Wall: 0.2 cm CBD: 0.3 cm Spleen: 13.0 cm. Normal less than 12.5 cm. Right Kidney: 10.3 x 6.6 x 6.7 cm Left Kidney: 11.8 x 5.3 x 4.3 cm Pancreas: Tail obscured by overlying bowel gas Liver: Mildly enlarged Gallbladder: No stones seen Evidence for sonographic Curry's sign: No CBD: wnl Spleen: Mildly enlarged Right Kidney: No hydronephrosis or masses seen Left Kidney: No hydronephrosis or masses seen Upper IVC: wnl Abd Aorta: wnl IMPRESSION: 1. Mild splenomegaly. 2. Mild hepatomegaly.
== END | disposition home or self-care (01) ==
LOC: RADUSWWP 08:47
PROVIDERS: ATTEND Family Medicine
DX: R16.2 Hepatomegaly with splenomegaly, not elsewhere classified (principal)
CPT/HCPCS: 76700

== ENCOUNTER → 2021-11-29 | Outpatient (CLI) | payer BC ==
[2021-11-29 11:52] LABS: T4, Free (Free Thyroxine) 1.17 ng/dL (0.800-1.800)
--- NOTE | 2021-11-29 12:46 | US ---
EXAMINATION TYPE: US thyroid st tissue head/neck DATE OF EXAM: 11/29/2021 COMPARISON: NONE CLINICAL HISTORY: E04.2 NONTOXIC MULTINODULAR GOITER. GLAND SIZE: Right Lobe: Surgically absent Left Lobe: 5.6 x 2.1 x 2.0 cm Overall Parenchyma: heterogeneous NODULES RIGHT: # of nodules measured on right: 1 1. ? nodule in residual tissue vs small lymph node measuring 0.4 x 0.3 x 0.3cm, mid, solid, anechoic nodule, which is wider than tall, with smooth margins, without echogenic foci. Prior size: 0.3 X 0.3 x 0.4 LEFT: # of nodules measured on left: 2 1. 1.5 X 1.3 x 1.3 cm, mid medial, solid or almost completely solid, isoechoic nodule, which is milagro ler than wide, with ill-defined margins, without echogenic foci. This is smaller than comparison. TR 3 Prior size:1.5 X 1.5 x 1.8 cm 2. 0.9 X 1.0 x 0.8 cm, mid-superior, cystic or almost completely cystic, anechoic nodule, which is wider than tall, with margins, without echogenic foci. No prior ISTHMUS: # of nodules measured in the isthmus: 0 Bilateral neck scanned, no evidence of lymphadenopathy. IMPRESSION: Mildly suspicious nodule left lobe thyroid. Follow-up exam in one year is recommended. 2017 ACR TI-RADS LEVEL: TR-RADS 3 - Mildly Suspicious: Follow if > 1.5 cm, FNA if > 2.5 cm *Highest TI-RADS level nodule reported
== END | disposition home or self-care (01) ==
LOC: RADUSWWP 07:30
PROVIDERS: ATTEND Internal Medicine Endocrinology, Diabetes & Metabolism
DX: E04.2 Nontoxic multinodular goiter (principal)
CPT/HCPCS: 76536; 84439; 84443

== ENCOUNTER → 2022-08-01 | Outpatient (CLI) | payer BC ==
--- NOTE | 2022-08-01 16:28 | US ---
EXAMINATION TYPE: US thyroid st tissue head/neck DATE OF EXAM: 08/01/2022 COMPARISON: Thyroid ultrasound 11/29/2021, 01/18/2021, 01/10/2020, 06/17/2019. CLINICAL HISTORY: E04.2 NONTOXIC MULTINODULAR GOITER. GLAND SIZE: Left Lobe: 4.9 x 2.2 x 2.3 cm Overall Parenchyma: heterogeneous Isthmus Thickness: 0.5 cm NODULES RIGHT: # of nodules measured on right: 1 1. ? residual tissue measuring 0.5 X 0.3 x 0.4 cm, mid, solid or almost completely solid, hypoechoi c nodule, which is wider than tall, with smooth margins, without echogenic foci. Stable from prior ex am. Prior size: 0.4 x 0.3 x 0.3 cm LEFT: # of nodules measured on left: 1 1. 1.7 X 1.8 x 1.4 cm, mid medial, solid or almost completely solid, hypoechoic nodule, which is ta ller than wide, with ill-defined margins, without echogenic foci. TR 4. Marginal increase in size fro m most recent exam but stable from earlier exams. Prior size: 1.5 x 1.3 x 1.3 cm ISTHMUS: # of nodules measured in the isthmus: 0 Bilateral neck scanned, no evidence of lymphadenopathy. IMPRESSION: 1. Marginal increase in size of TR 4 left thyroid lobe nodule measuring up to 1.8 cm from prior exam ination but stable from other examinations. The need for biopsy should be determined clinically. 2. Stable questionable residual tissue in the right thyroidectomy bed.
== END | disposition home or self-care (01) ==
LOC: RADUSWWP 15:36
PROVIDERS: ATTEND Internal Medicine Endocrinology, Diabetes & Metabolism
DX: E04.2 Nontoxic multinodular goiter (principal)
CPT/HCPCS: 76536

== ENCOUNTER → 2022-08-03 | Outpatient (CLI) | payer BC ==
[2022-08-03 15:56] LABS: T4, Free (Free Thyroxine) 1.22 ng/dL (0.800-1.800)
== END | disposition home or self-care (01) ==
LOC: LABWHC1 07:00
PROVIDERS: ATTEND Internal Medicine Endocrinology, Diabetes & Metabolism
DX: E04.2 Nontoxic multinodular goiter (principal)
CPT/HCPCS: 36415; 84439; 84443